=== PATIENT | male | born 1990 | race Caucasian/White ===

== ENCOUNTER 2020-02-22 01:06 | Emergency (ER) | payer SELFPAY ==
[2020-02-22] MEDS ORDERED: ONDANSETRON 4 MG/2 ML VIAL ONE (01:37)
[2020-02-22] MEDS ORDERED: GLUCAGON 1 MG/VIAL ONE ×2 (01:37→02:21)
[2020-02-22] MEDS ORDERED: NA CHLORIDE 0.9% 1,000 ML ONE (01:38)
[2020-02-22 01:45] LABS: Absolute Lymphocytes (CBC) 3.3 K/uL (0.7-4.9); Basophils % 0.5 % (0-1.3); Hematocrit 50.2 % (39.6-49.0); Lymphocytes % 39.1 % (15.3-44.8); MPV 8.2 fL (7.6-11.3); RBC Red Blood Cell Count 5.63 M/uL (4.33-5.43)
[2020-02-22 02:00] LABS: Albumin 4.5 g/dL (3.4-5.0); Bilirubin Direct 0.2 mg/dL (0-0.2); Bilirubin Total 0.6 mg/dL (0.2-1.0); Potassium 3.9 mmol/L (3.5-5.1); Protein, Total 8.8 g/dL (6.4-8.2)
[2020-02-22] MEDS ORDERED: LORazepam 2 MG/ML VIAL ONE ×2 (02:30→04:02)
[2020-02-22] MEDS ORDERED: PROMETHAZINE INJ 25 MG/ML AMP ONE (02:30)
[2020-02-22] MEDS ORDERED: Magnesium Sulfate 2gm IVPB 2 G/50 ML BAG IV ONE (03:49)
--- NOTE | 2020-02-22 03:58 | ER ---
Nurse's Notes [facility] Name: Yoni Moreno Age: 29 yrs Sex: Male : 1990 Arrival Date: 02/22/2020 Time: :08 Bed 5 Private MD: Diagnosis: Food in esophagus Presentation: 02/21 01:23 Chief complaint: Patient states: he was eating steak for dinner tonight approx 1900 bb took about 3 bites started having "acid reflux' drank some julita-seltzer but immediately threw it up and has been unable to swallow liquids or his secretions. Coronavirus screen: Proceed with normal triage. Ebola Screen: No symptoms or risks identified at this time. Initial Sepsis Screen: Does the patient meet any 2 criteria? No. Patient's initial sepsis screen is negative. Does the patient have a suspected source of infection? No. Patient's initial sepsis screen is negative. Risk Assessment: Do you want to hurt yourself or someone else? Patient reports no desire to harm self or others. Onset of symptoms was February 21, 2020. 01:23 Method Of Arrival: Ambulatory : Acuity: VINCENT 2 bb Historical: - Allergies: : No Known Allergies; bb - Home Meds: :26 Cymbalta oral oral [Active]; Wellbutrin Oral [Active]; bb - PMHx: 01: Depression; bb - PSHx: 01:26 Knee surgery; bb - Immunization history:: Adult Immunizations up to date. - Social history:: Smoking status: Patient denies any tobacco usage or history of. Patient uses alcohol, on a daily basis. Patient/guardian denies using street drugs, Patient/guardian denies using alcohol, The patient lives with spouse. - Family history:: not pertinent. Screenin:25 Abuse screen: Denies threats or abuse. Nutritional screening: No deficits noted. jb4 Tuberculosis screening: No symptoms or risk factors identified. Fall Risk None identified. Assessment: 01:25 General: Appears distressed, uncomfortable, Behavior is calm, cooperative, appropriate jb4 for age, reports feeling like he has something stuck in his throat.. Pain: Complains of pain in throat and chest Pain does not radiate. Pain currently is 6 out of 10 on a pain scale. Quality of pain is described as acid reflux. Pain began 4 hours ago. Neuro: Level of Consciousness is awake, alert, obeys commands, Oriented to person, place, time, situation. Cardiovascular: Patient's skin is warm and dry. Respiratory: Airway is patent Respiratory effort is even, unlabored, Respiratory pattern is regular, symmetrical. GI: Abdomen is round non-distended, Pt is actively vomiting bile. : No signs and/or symptoms were reported regarding the genitourinary system. EENT: No signs and/or symptoms were reported regarding the EENT system. Derm: Skin is intact, Skin is pink, warm \\T\\ dry. Musculoskeletal: Circulation, motion, and sensation intact. Range of motion: intact in all extremities. 01:35 Reassessment: Pt appears to immediately worsen after Glucagon administration. Provider jb4 notified, no new orders at this time. 01:45 Reassessment: Provider at the bedside informing patient of plan to transfer him. Pt jb4 states " I suddenly feel better. I don't feel like it is stuck any more." Pt reports being able to swallow his own saliva now. 02:00 Reassessment: Patient appears in no apparent distress at this time. Patient and/or jb4 family updated on plan of care and expected duration. Pain level reassessed. Patient is alert, oriented x 3, equal unlabored respirations, skin warm/dry/pink. Patient states feeling better. Patient states symptoms have improved. 02:10 Reassessment: Pt began to start vomiting again, provider notified. see MAR for orders. jb4 02:45 Reassessment: Patient appears in no apparent distress at this time. Patient and/or jb4 family updated on plan of care and expected duration. Pain level reassessed. Patient is alert, oriented x 3, equal unlabored respirations, skin warm/dry/pink. PT no longer vomiting. pt states " I feel a hundred times better. It does not even feel like I have anything stuck anymore." Patient states feeling better. Patient states symptoms have improved. 03:05 Reassessment: Pt reports feeling better with no vomitting for 20 minutes. Given fluids jb4 for PO challenge. 03:30 Reassessment: Patient appears in no apparent distress at this time. Patient and/or jb4 family updated on plan of care and expected duration. Pain level reassessed. Patient is alert, oriented x 3, equal unlabored respirations, skin warm/dry/pink. PT beginning to worsen, pt is hiccuping and beginning to gag. Provider notified. Provider informed patient of need to transfer. Pt agreed to transfer. 03:55 Reassessment: PT appears very anxious, States "I can't breathe!" O2 sats 100% on room jb4 air. Lungs CTA MARGARETH. Provider notified, see MAR for order. 04:10 Reassessment: Patient appears in no apparent distress at this time. Patient and/or jb4 family updated on plan of care and expected duration. Pain level reassessed. Patient is alert, oriented x 3, equal unlabored respirations, skin warm/dry/pink. PT appears to be more calm. Reports feeling better and no longer feeling nausea's. Appears much more calm. 04:25 Reassessment: PT signed transfer form agreeing to be transferred. jb4 05:30 Reassessment: Patient appears in no apparent distress at this time. Pt is resting in jb4 comfortably in bed with eyes closed, respirations are even and unlabored. No s/s of pain or distress noted at this time. 06:30 Reassessment: Report given to EMS. Pt is awake, alert, and oriented. No s/s of pain jb4 or distress noted. IV is intact with no s/s of infiltration or phlebitis noted. Pt reports feeling better. Respirations are even and unlabored. Pt transferred to EMS stretcher. Vital Signs: 01:23 BP 125 / 86; Pulse 75; Resp 18 S; Temp 98.2(O); Pulse Ox 99% on R/A; Weight 108.86 kg bb (R); Height 6 ft. 0 in. (182.88 cm) (R); Pain 5/10; 02:40 BP 124 / 92; Pulse 87; Resp 16; Pulse Ox 100% on R/A; jb4 03:31 BP 125 / 95; Pulse 95; Resp 16; Pulse Ox 98% on R/A; jb4 04:15 BP 116 / 80; Pulse 78; Resp 16; Pulse Ox 96% on R/A; Pain 2/10; jb4 05:00 BP 107 / 68; Pulse 72; Resp 16; Pulse Ox 96% on R/A; jb4 06:15 BP 113 / 78; Pulse 71; Resp 16; Pulse Ox 97% on R/A; jb4 01:23 Body Mass Index 32.55 (108.86 kg, 182.88 cm) bb ED Course: 01:08 Patient arrived in ED. ds1 01:17 Salo Bennett MD is Attending Physician. ma2 01:17 Hung Muñiz, RN is Primary Nurse. jb4 01:25 Triage completed. bb 01:25 Initial lab(s) drawn, by me, sent to lab. Inserted saline lock: 20 gauge in right jb4 antecubital area, using aseptic technique. Blood collected. 01:26 Arm band placed on Patient placed in an exam room, on a stretcher, on pulse oximetry. bb 01:27 Patient has correct armband on for positive identification. Placed in gown. Bed in low bb position. Call light in reach. Side rails up X 1. Pulse ox on. NIBP on. Warm blanket given. 01:30 Lipase Sent. jb4 01:30 Hepatic Function Sent. jb4 01:30 Creatinine for Radiology Sent. jb4 01:30 CBC with Diff Sent. jb4 01:30 Basic Metabolic Panel Sent. jb4 01:42 Chest Single View XRAY In Process Unspecified. EDMS 02:46 CT Chest Wo Con In Process Unspecified. EDMS 06:30 No provider procedures requiring assistance completed. Patient transferred, IV remains jb4 in place. Administered Medications: 01:37 Drug: Zofran (Ondansetron) 4 mg Route: IVP; Site: right antecubital; jb4 01:50 Follow up: Response: No adverse reaction; Nausea is decreased jb4 01:39 Drug: NS 0.9% 1000 ml Route: IV; Rate: 1 bolus; Site: right antecubital; jb4 03:05 Follow up: Response: No adverse reaction; IV Status: Completed infusion; IV Intake: jb4 1000ml 01:40 Drug: GlucaGen 1 mg Route: IVP; Site: right antecubital; jb4 01:55 Follow up: Response: No adverse reaction; Marked relief of symptoms jb4 02:20 Drug: Glucagon 1 mg Route: IVP; Site: right antecubital; jb4 02:45 Follow up: Response: No adverse reaction; Marked relief of symptoms jb4 02:24 Drug: Ativan 1 mg Route: IVP; Site: right antecubital; jb4 02:45 Follow up: Response: No adverse reaction; Anxiety decreased jb4 02:25 Drug: Phenergan 25 mg Route: IVP; Site: right antecubital; jb4 02:45 Follow up: Response: No adverse reaction; Nausea is decreased jb4 03:55 Drug: Magnesium Sulfate 2 grams Route: IVPB; Infused Over: 2 hrs; Site: right jb4 antecubital; 05:55 Follow up: Response: No adverse reaction; IV Status: Completed infusion; IV Intake: [id number] 04:00 Drug: Ativan 2 mg Route: IVP; Site: right antecubital; jb4 04:30 Follow up: Response: No adverse reaction; Anxiety decreased jb4 Intake: 03:05 IV: 1000ml; Total: 1000ml. jb4 05:55 IV: 50ml; Total: 1050ml. jb4 Outcome: 03:57 ER care complete, transfer ordered by MD. dodd 06:45 Transferred by ground EMS EMS. [place] [facility] [place]b4 completed. X-rays sent w/ patient. 06:45 Condition: stable 06:45 Discharge instructions given to patient, Instructed on the need for admit, Demonstrated understanding of instructions. 06:48 Patient left the ED. ar5 Signatures: Dispatcher [employer] Janay Marie Brenda, RN RN bb Bryson, James, RN RN jb4 Alzahri, Mohammad, MD MD ma2 Monique Soria ar5
--- NOTE | 2020-02-22 03:58 | EDPHYS ---
Physician Documentation [facility] Name: Yoni Moreno Age: 29 yrs Sex: Male : 1990 Arrival Date: 02/22/2020 Time: 01:08 Bed 5 Private MD: ED Physician Salo Bennett HPI: 02/21 03:51 This 29 yrs old Male presents to ER via Ambulatory with complaints of ma2 Vomiting. 03:51 The patient presents to the emergency department with nausea, vomiting. Onset: The ma2 symptoms/episode began/occurred suddenly, 5 hour(s) ago. Associated signs and symptoms: Pertinent positives: belching, Pertinent negatives: diarrhea, fever, flatulence, GI bleeding. Severity of symptoms: At their worst the symptoms were mild moderate in the emergency department the symptoms are unchanged. has food bolus stuck in esophagus unable to swallow saliva . Historical: - Allergies: 01:26 No Known Allergies; bb - Home Meds: 01:26 Cymbalta oral oral [Active]; Wellbutrin Oral [Active]; bb - PMHx: 01:26 Depression; bb - PSHx: 01:26 Knee surgery; bb - Immunization history:: Adult Immunizations up to date. - Social history:: Smoking status: Patient denies any tobacco usage or history of. Patient uses alcohol, on a daily basis. Patient/guardian denies using street drugs, Patient/guardian denies using alcohol, The patient lives with spouse. - Family history:: not pertinent. ROS: 03:51 Constitutional: Negative for fever, chills, and weight loss, Cardiovascular: Negative ma2 for chest pain, palpitations, and edema, Respiratory: Negative for shortness of breath, cough, wheezing, and pleuritic chest pain, Abdomen/GI: Negative for abdominal pain, nausea, diarrhea, and constipation, Psych: Negative for depression, anxiety, suicide ideation, homicidal ideation, and hallucinations, Allergy/Immunology: Negative for hives, rash, and allergies, Endocrine: Negative for neck swelling, polydipsia, polyuria, polyphagia, and marked weight changes. Exam: 03:51 Constitutional: This is a well developed, well nourished patient who is awake, alert, ma2 and in no acute distress. Head/Face: Normocephalic, atraumatic. Eyes: Pupils equal round and reactive to light, extra-ocular motions intact. Lids and lashes normal. Conjunctiva and sclera are non-icteric and not injected. Cornea within normal limits. Periorbital areas with no swelling, redness, or edema. ENT: Nares patent. No nasal discharge, no septal abnormalities noted. Tympanic membranes are normal and external auditory canals are clear. Oropharynx with no redness, swelling, or masses, exudates, or evidence of obstruction, uvula midline. Mucous membranes moist. Neck: Trachea midline, no thyromegaly or masses palpated, and no cervical lymphadenopathy. Supple, full range of motion without nuchal rigidity, or vertebral point tenderness. No Meningismus. Chest/axilla: Normal chest wall appearance and motion. Nontender with no deformity. No lesions are appreciated. Cardiovascular: Regular rate and rhythm with a normal S1 and S2. No gallops, murmurs, or rubs. Normal PMI, no JVD. No pulse deficits. Respiratory: Lungs have equal breath sounds bilaterally, clear to auscultation and percussion. No rales, rhonchi or wheezes noted. No increased work of breathing, no retractions or nasal flaring. Abdomen/GI: Soft, non-tender, with normal bowel sounds. No distension or tympany. No guarding or rebound. No evidence of tenderness throughout. Neuro: Awake and alert, GCS 15, oriented to person, place, time, and situation. Cranial nerves II-XII grossly intact. Motor strength 5/5 in all extremities. Sensory grossly intact. Cerebellar exam normal. Normal gait. Vital Signs: 01:23 BP 125 / 86; Pulse 75; Resp 18 S; Temp 98.2(O); Pulse Ox 99% on R/A; Weight 108.86 kg bb (R); Height 6 ft. 0 in. (182.88 cm) (R); Pain 5/10; 02:40 BP 124 / 92; Pulse 87; Resp 16; Pulse Ox 100% on R/A; jb4 03:31 BP 125 / 95; Pulse 95; Resp 16; Pulse Ox 98% on R/A; jb4 04:15 BP 116 / 80; Pulse 78; Resp 16; Pulse Ox 96% on R/A; Pain 2/10; jb4 05:00 BP 107 / 68; Pulse 72; Resp 16; Pulse Ox 96% on R/A; jb4 06:15 BP 113 / 78; Pulse 71; Resp 16; Pulse Ox 97% on R/A; jb4 01:23 Body Mass Index 32.55 (108.86 kg, 182.88 cm) bb MDM: 01:17 Patient medically screened. ma2 03:51 Differential diagnosis: Nonspecific abd pain, gastritis, viral gastroenteritis, ma2 gastroenteritis. Data reviewed: vital signs, nurses notes. Counseling: I had a detailed discussion with the patient and/or guardian regarding: the historical points, exam findings, and any diagnostic results supporting the discharge/admit diagnosis, the presence of at least one elevated blood pressure reading (>120/80) during this emergency department visit, the need to transfer to another facility. ED course: ct shows food bolus in esophagus, no perf, vs wnl, given glucagon, antiemetic and mag, will transfer for higher level of care as no gi available in our hospital . 02/21 01:23 Order name: Basic Metabolic Panel; Complete Time: 02:12 02/21 01:23 Order name: CBC with Diff; Complete Time: 02:12 02/21 01:23 Order name: Creatinine for Radiology; Complete Time: 02:12 02/21 01:23 Order name: Hepatic Function; Complete Time: 02:12 02/21 01:23 Order name: Lipase; Complete Time: 02:12 02/21 01:24 Order name: Chest Single View XRAY 02/21 02:13 Order name: CT Chest Wo Con 02/21 01:23 Order name: IV Saline Lock; Complete Time: 01:28 02/21 01:23 Order name: Labs collected and sent; Complete Time: 01:28 nd2 Administered Medications: 01:37 Drug: Zofran (Ondansetron) 4 mg Route: IVP; Site: right antecubital; jb4 01:50 Follow up: Response: No adverse reaction; Nausea is decreased jb4 01:39 Drug: NS 0.9% 1000 ml Route: IV; Rate: 1 bolus; Site: right antecubital; jb4 03:05 Follow up: Response: No adverse reaction; IV Status: Completed infusion; IV Intake: jb4 1000ml 01:40 Drug: GlucaGen 1 mg Route: IVP; Site: right antecubital; jb4 01:55 Follow up: Response: No adverse reaction; Marked relief of symptoms jb4 02:20 Drug: Glucagon 1 mg Route: IVP; Site: right antecubital; jb4 02:45 Follow up: Response: No adverse reaction; Marked relief of symptoms jb4 02:24 Drug: Ativan 1 mg Route: IVP; Site: right antecubital; jb4 02:45 Follow up: Response: No adverse reaction; Anxiety decreased jb4 02:25 Drug: Phenergan 25 mg Route: IVP; Site: right antecubital; jb4 02:45 Follow up: Response: No adverse reaction; Nausea is decreased jb4 03:55 Drug: Magnesium Sulfate 2 grams Route: IVPB; Infused Over: 2 hrs; Site: right jb4 antecubital; 05:55 Follow up: Response: No adverse reaction; IV Status: Completed infusion; IV Intake: [id number] 04:00 Drug: Ativan 2 mg Route: IVP; Site: right antecubital; jb4 04:30 Follow up: Response: No adverse reaction; Anxiety decreased jb4 Disposition: 02/22/20 03:57 Transfer ordered to [facility]. Diagnosis is Food in esophagus. - Reason for transfer: Higher level of care. - Accepting physician is dr. tan.. - Condition is Stable. - Problem is new. - Symptoms are unchanged. Signatures: Dispatcher [employer] EDApril Bravo RN RN Hung Elliott RN RN jb4 Salo Bennett MD MD ma2 Monique Soria ar5 Corrections: (The following items were deleted from the chart) 06:48 03:57 02/22/2020 03:57 Transfer ordered to [facility]. ar5 Diagnosis is Food in esophagus. Reason for transfer: Higher level of care. Accepting physician is dr. tan.. Condition is Stable. Problem is new. Symptoms are unchanged. ma2
[2020-02-22 06:54] VITALS: TEMP 98.2
[2020-02-22 06:58] VITALS: O2SAT 96
[2020-02-22 06:59] VITALS: BP 107/68
--- NOTE | 2020-02-22 09:59 | RAD REPORT ---
EXAM DESCRIPTION: RAD - Chest Single View - 02/22/2020 1:42 am CLINICAL HISTORY: ?food bolus in esophegus, chest pain, shortness of breath COMPARISON: None TECHNIQUE: AP portable chest image was obtained 02/22/2020 1:42 am . FINDINGS: Lungs are clear. Heart and vasculature are normal. No measurable pleural effusion and no p neumothorax. No acute bony abnormality seen. No acute aortic findings suspected. IMPRESSION: No acute cardiopulmonary process.
--- NOTE | 2020-02-22 10:54 | RAD REPORT ---
EXAM DESCRIPTION: CT - Thorax Navjot Navarrete - 02/22/2020 3:02 am ADDENDUM #1 THIS REPORT CONTAINS FINDINGS THAT MAY BE CRITICAL TO PATIENT CARE: The findings were verbally discussed via telephone conference with Dr. Salo Bennett by Dr. Willie Parks on 02/22/2020 2:59 AM CDT .The results were acknowledged and understood. Electronically signed by: Theodora Parks MD 02/22/2020 3:00 AM CDT End of Addendum EXAM DESCRIPTION: CT Chest Without Intravenous Contrast CLINICAL HISTORY: The patient is 29 years old and is Male; ? Fb in esophegus difficulty swallowin g TECHNIQUE: Axial computed tomography images of the chest without intravenous contrast. Sagittal an d coronal reformatted images were created and reviewed. This CT exam was performed using one or mor e of the following dose reduction techniques: automated exposure control, adjustment of the mA and/ or kV according to patient size, and/or use of iterative reconstruction technique. COMPARISON: No relevant prior studies available. FINDINGS: LUNGS: The lungs are clear of focal opacity, mass, or consolidation. PLEURAL SPACE: Unremarkable. No pneumothorax. No significant effusion. HEART: No cardiomegaly. No pericardial effusion. MEDIASTINUM: The esophagus is fluid-filled. A large food bolus is present within the distal esoph teetee just superior to the GE junction measuring approximately 4 cm in craniocaudal dimension. BONES/JOINTS: No acute fracture. SOFT TISSUES: The soft tissues are normal. VASCULATURE: Unremarkable. No thoracic aortic aneurysm. LYMPH NODES: Unremarkable. No enlarged lymph nodes. IMPRESSION: Obstructing food bolus within the distal esophagus just superior to the GE junction. The remainder of the esophagus is dilated and fluid-filled. Electronically signed by: Theodora Parks MD 02/22/2020 2:56 AM CDT Due to temporary technical issues with the PACS/Fluency reporting system, reports are being signed by the in house radiologist as a courtesy to ensure prompt reporting. The interpreting radiologist is f ully responsible for the content of the report.
== END 2020-02-22 06:48 | disposition short-term general hospital (02) ==
LOC: ER 01:06
DX: T18.128A Food in esophagus causing other injury, initial encounter (principal); F32.9 Major depressive disorder, single episode, unspecified
CPT/HCPCS: 36415; 71045; 71250; 80048; 80076; 83690; 85025; 96361; 96365; 96366; 96375; 99285; J1610; J2405; J2550; J3475; J7030